=== PATIENT | female | born 1980 | race Hispanic/Latino ===

== ENCOUNTER 2020-09-24 08:00 | Day surgery (SDC) | payer BC ==
[2020-09-18 14:29] LABS: BASOPHILS % (AUTO) 0.6 % (0.0-5.0); EOSINOPHILS % (AUTO) 0.7 % (0.0-8.0); HEMATOCRIT 39.6 % (36-48); LYMPHOCYTES % (AUTO) 36.6 % (21.0-51.0); MEAN CORPUSCULAR HGB CONC 34.1 g/dL (32.0-36.0); MEAN CORPUSCULAR VOLUME 90.8 fL (79-99); MONOCYTES % (AUTO) 5.4 % (3.0-13.0); NEUTROPHILS % (AUTO) 56.4 % (40.0-77.0); PLATELET COUNT (AUTO) 304 K/uL (130-400); RED BLOOD CELL COUNT(AUTO) 4.36 MIL/uL (4.00-5.50); RED CELL DISTRIBUTION WIDTH 12.2 % (11.0-15.5); WHITE BLOOD COUNT (AUTO) 7.2 K/uL (4.8-10.8)
[2020-09-18 14:49] LABS: CREATININE 0.7 mg/dL (0.5-1.5); POTASSIUM 3.4 mmol/L (3.5-5.1)
[2020-09-18 15:31] VITALS: BP 140/75
[2020-09-24] VITALS (19 sets, daily range): BP systolic 110–137; BP diastolic 65–87
[~2020-09-24] VITALS: Ht 157.5 cm; Wt 62.0 kg
[2020-09-24] MEDS ORDERED: LACTATED RINGERS 1000ML 1,000 ML IV ONE (08:41)
[2020-09-24] MEDS: CEFAZOLIN SODIUM 1 GM VIAL IVP ONE ×2 (08:51→10:50)
[2020-09-24] MEDS ORDERED: BUPIVACAINE/PF 0.5% 30ML VIAL ONE (10:09)
[2020-09-24] MEDS ORDERED: DEXAMETHASONE SOD PHOSPHATE 10MG/ML 1ML VIAL ONE (10:33)
[2020-09-24] MEDS ORDERED: MIDAZOLAM HCL 1 MG/ML 2ML VIAL ONE (10:33)
[2020-09-24] MEDS ORDERED: ONDANSETRON HCL 4 MG/2 ML VIAL ONE (10:33)
[2020-09-24] MEDS ORDERED: PROPOFOL 10 MG/ML 20ML VIAL IV ONE (10:33)
[2020-09-24] MEDS ORDERED: SUCCINYLCHOLINE 200MG/10ML SYR ONE (10:33)
[2020-09-24] MEDS ORDERED: FENTANYL CITRATE PF 50 MCG/1 ML 2ML VIAL ONE (10:33)
[2020-09-24] MEDS ORDERED: LIDOCAINE PF 2% 5ML ABBOJECT ONE (10:33)
[2020-09-24] MEDS ORDERED: ROCURONIUM 10MG/1ML SYR 10 MG/ML ML ONE (10:34)
[2020-09-24] MEDS ORDERED: NEOSTIGMINE 5MG/5ML SYR IV ONE (11:31)
[2020-09-24] MEDS ORDERED: GLYCOPYRROLATE 1 MG/5 ML SYRINGE ONE (11:31)
[2020-09-24] MEDS ORDERED: MEPERIDINE-PF 25 MG/ML SYG ONE ×2 (12:01→12:15)
== END 2020-09-24 14:05 | disposition home or self-care (01) ==
LOC: DAH 08:00
PROVIDERS: ATTEND Surgery
DX: K80.12 Calculus of gallbladder with acute and chronic cholecystitis without obstruction (principal); Z20.828 Contact with and (suspected) exposure to other viral communicable diseases; Z83.79 Family history of other diseases of the digestive system; Z82.49 Family history of ischemic heart disease and other diseases of the circulatory system; Z79.899 Other long term (current) drug therapy; Z98.890 Other specified postprocedural states
CPT/HCPCS: 47562; S2900; 36415; 80048; 84703; 85025; 85730; J0330; J0690; J1100; J2001; J2175; J2250; J2405; J2704; J2710; J3010; J3490; J7030; J7120; U0003

== ENCOUNTER 2022-12-03 17:45 | Emergency (ER) | payer BC, OTHER ==
[~2022-12-03] VITALS: Ht 157.5 cm; Wt 59.0 kg
[2022-12-03] MEDS ORDERED: 0.9%NACL 1000ML 1,000 ML IV ONE (18:30)
[2022-12-03] MEDS ORDERED: ONDANSETRON 4MG INJ IVP ONE (18:30)
[2022-12-03 18:39] LABS: APPEARANCE,URINE SL CLOUDY (CLEAR); BILIRUBIN,URINE SMALL mg/dL (NEGATIVE); COLOR,URINE YELLOW (YELLOW); GLUCOSE, URINE (UA) NEGATIVE (NEGATIVE); KETONES,URINE 40 mg/dL (NEGATIVE); LEUKOCYTE ESTERASE ,URINE NEGATIVE Leu/uL (NEGATIVE); NITRATE,URINE NEGATIVE (NEGATIVE); OCCULT BLOOD,URINE LARGE (NEGATIVE); PROTEIN,URINE 30 mg/dL (NEGATIVE); UROBILINOGEN,URINE 0.2 mg/dL (0.2-1.0)
[2022-12-03 18:42] LABS: BASOPHILS % (AUTO) 0.4 % (0.0-5.0); EOSINOPHILS % (AUTO) 0.4 % (0.0-8.0); HEMATOCRIT 40.6 % (36-48); LYMPHOCYTES % (AUTO) 17.7 % (21.0-51.0); MEAN CORPUSCULAR HEMOGLOBIN 30.8 pg (27.0-33.0); MEAN CORPUSCULAR HGB CONC 34.2 g/dL (32.0-36.0); MONOCYTES % (AUTO) 3.8 % (3.0-13.0); NEUTROPHILS % (AUTO) 77.3 % (40.0-77.0); PLATELET COUNT (AUTO) 312 K/uL (130-400); RED BLOOD CELL COUNT(AUTO) 4.51 MIL/uL (4.00-5.50); RED CELL DISTRIBUTION WIDTH 12.4 % (11.0-15.5); WHITE BLOOD COUNT (AUTO) 11.2 K/uL (4.8-10.8)
[2022-12-03 18:49] LABS: BACTERIA,URINE FEW /HPF (None Seen); CALCIUM OXALATE CRYSTALS,UR FEW /LPF (None Seen); MUCUS,URINE FEW LPF (None Seen); RBC,URINE 51-100 /HPF (0-1); SQUAMOUS EPITHELIAL CELL,UR FEW /HPF (0-2); YEAST,URINE BUDDING FEW /HPF (None Seen)
[2022-12-03 18:53] LABS: ALBUMIN 3.8 g/dL (3.5-5.0); POTASSIUM 3.5 mmol/L (3.5-5.1); TOTAL PROTEIN, SERUM 7.8 g/dL (6.0-8.3)
[2022-12-03 18:55] LABS: HCG,QUALITATIVE URINE NEGATIVE (NEGATIVE)
[2022-12-03] MEDS ORDERED: KETOROLAC 60 MG VIAL (30MG/ML) IM ONE (19:00)
[2022-12-03] MEDS ORDERED: IOHEXOL 350 MG/ML 100ML INFUS..BTL IV ONE (19:04)
[2022-12-03 19:30] VITALS: BP 136/70
[2022-12-03] MEDS ORDERED: NAPR500T6 PO (20:46)
[2022-12-03] MEDS ORDERED: ONDA4TAB10 PO (20:46)
== END 2022-12-03 21:38 | disposition home or self-care (01) ==
LOC: EDH 17:45
DX: N83.202 Unspecified ovarian cyst, left side (principal); E86.0 Dehydration; Z90.49 Acquired absence of other specified parts of digestive tract; Z79.1 Long term (current) use of non-steroidal anti-inflammatories (NSAID)
CPT/HCPCS: 99285; 74177; 96374; 71045; 96361; 80053; 83690; 85025; 87088; 81001; 81025; 36415; 96372; J7030; J2405; J1885; Q9967